=== PATIENT | female | born 1990 | race Caucasian/White ===

== ENCOUNTER 2017-11-15 08:41 | Day surgery (SDC) | payer MEDICAID, SELFPAY ==
[2017-11-15 08:50] VITALS: BP 112/66; PULSE 64; RESP 16; TEMP 36.4; O2SAT 99; BMI 37.1
--- NOTE | 2017-11-15 09:50 | LES_PTH ---
PATIENT: RISHABH AGUILAR [place] [facility] [place][id number] AGE/SX: 27/F ROOM: RE11/15/[address]: Dr. Marcelino Lacey MD : 1990 BED: DIS: 11/15/2017 SPEC #: [id number] RECD: 11/15/17 11:39 STATUS: LILIANA SELAM #: [id number] RAJAN: 11/15/17 09:[address]: Marcelino Lacey DEPT: SURGICAL PATHOLOGY RECD BY: Mark Collazo ENTERED: 11/15/17 12:28 SP TYPE: Lesion OTHR DR: Dr. Kirit Spears DO Tissues: A - Skin of lip, NOS B - Skin of lip, NOS Procedures: Surgery Specimen Level IV HEADER OPERATION: Excision, lesion, upper lip x2 PRE-OP DIAGNOSIS: Pigmented lesion, 6mm left upper lip, 3mm pigmented lesion left lower lit at star border TISSUE SUBMITTED: A. Lip lesion star border, B. Upper lip lesion MICROSCOPIC DIAGNOSIS A. Lip lesion, star border, biopsy: Intradermal nevus. B. Lesion of upper lip, biopsy: Intradermal nevus. AM:ryan 11/16/17 COMMENT Case has been reviewed in consultation with Dr. Cano who concurs with the above diagnosis. IDC:SJ MICROSCOPIC DESCRIPTION Slides are reviewed. GROSS DESCRIPTION A - Received in fixative is one container labeled with the patient's name and designated lip lesion star border. The specimen consists of a piece of han-white skin measuring 0.5 x 0.4 x 0.1 cm. The specimen is inked and submitted entirely in one cassette. It will be bisected at the time of embedding. B - Received in fixative is one container labeled with the patient's name and designated upper lip lesion. The specimen consists of a piece of han-white to light brown skin measuring 0.8 x 0.6 x 0.3 cm. The specimen is inked and submitted entirely in one cassette. It will be sectioned at the time of embedding. / VIJAY:ryan 11/15/17 TC:5 CPT: 08764 x2
--- NOTE | 2017-11-15 10:29 | PCM.HP.BLA ---
History and Physical Date of Admission: 11/15/17 Intake Vital Signs 09/08/17 Height 5 ft 9 in 09/08/17 Weight: 261 lb 2 oz 09/08/17 Body Mass Index (BMI) 38.5 09/08/17 Blood Pressure 119/82 09/08/17 Blood Pressure Location Lt brachial 09/08/17 Blood Pressure Position Sitting 09/08/17 Respiratory Rate 16 09/08/17 Pulse Rate 78 09/08/17 Pulse Source Monitor 09/08/17 Temperature 98.5 F 09/08/17 Temperature Source Temporal Artery 09/08/17 Pulse Ox 98 09/08/17 Oxygen Delivery Method room air HISTORY OF PRESENT ILLNESS 27 year old woman presents for evaluation for TBSE. She has concerns about pigmented lesions on her left upper lip and lower on the left upper lip at the star border. These lesions have increased in size over the last several months and has developed irregular borders. She denies any trauma. She denies any fever. She denies any bleeding. She presents at this time for further evaluation and treatment. PAST MEDICAL HISTORY Gallstones. peptic ulcer. PAST SURGICAL HISTORY cholecystectomy right knee surgery shoulder surgery MEDICATIONS None. ALLERGIES None. FAMILY HISTORY Aunt - Diabetes. CVA (cerebral vascular accident). Negative for skin cancer. SOCIAL HISTORY Smoking Status: Former smoker REVIEW OF SYSTEMS General - Denies fever, fatigue, and weight loss. Eyes - Denies cataracts and glaucoma. ENT - Denies nasal congestion and sore throat. Endocrine - Denies excessive thirst and urination. Skin - Denies skin cancer. Has enlarging pigmented lesions left upper lip and lower on the left upper lip at star border. Musculoskeletal - Denies joint pain, joint stiffness, weakness of muscles and joints, and arthritis. Has back pain. Neuro - Denies headaches. Cardiovascular - Denies chest pain, fatigue, and shortness of breath with exertion. Psych - Denies anxiety and depression. Respiratory - Denies chronic cough and shortness of breath. Gastrointestinal - Denies nausea, vomiting, diarrhea, and constipation. Hematologic - Denies abnormal bruising and bleeding. Genitourinary - Denies hematuria and urinary frequency. PHYSICAL EXAMINATION General - Alert and Oriented, HEENT - PERRL. EOMI. Throat is clear. On the left upper lip is a pigmented lesion that is raised in configuration. Has irregular borders. No ulceration. Lesion is nontender. Measures 6 mm. Lower on the left upper lip at the star border and close to the oral commissure is a pigmented lesion that is firm and raised in configuration. Has irregular borders. No ulceration. Lesion is nontender. Measures 3 mm. Neck - Supple and nontender. No cervical adenopathy. No suspicious lesions noted. Lungs - Clear to auscultation. Heart - Regular rate and rhythm. Abdomen - Soft and nondistended. No suspicious lesions noted. Extremities - FROM. No axillary adenopathy. Radial pulses are palpable. No suspicious lesions noted. Neuro - CN II-XII grossly intact. Psych - Normal mood and affect. ASSESSMENT 1. 6 mm pigmented lesion left upper lip. 2. 3 mm pigmented lesion lower on the left upper lip at star border. PLAN Recommend excision of these pigmented lesions on her left upper lip and lower on the left upper lip at star border. Surgery can be done under general anesthesia on an outpatient basis. Because it is pigmented, a deep shave excision would be the minimum that is acceptable. The goal is to remove all the pigmentation. Discussed with the patient that sometimes recurrent pigmentation can occur in which case further excision can be done. When excised these lesions will be sent to Pathology for analysis to rule out carcinoma. If carcinoma is present, then further excision will be necessary with skin graft or skin flap reconstruction. Because of the deep shave that is necessary, there is the risk that a contour irregularity may result. If it doesn't soften up and smooth out, then further excision will be necessary with skin grafting. Any revision that is done will occur at 9-12 months (minimum). Patient was informed of the risks and complications of the procedure including alternatives to surgery. These were discussed with the patient personally. Patient voices understanding and wishes to proceed. Some of the risks and complications were included in a form from the [employer].
[2017-11-15] MEDS: Silver Nitrate (BKC) 1 EACH (11:18)
[2017-11-15] MEDS: Mupirocin Ointment 22gm Tube 1 APPLIC (11:18)
[2017-11-15 11:30] VITALS: BP 112/66; BP 122/89; PULSE 97; RESP 16; TEMP 36.7; O2SAT 99
--- NOTE | 2017-11-15 11:37 | PCM.IMDPSTOP ---
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 6 mm pigmented lesion left upper lip. 2. 3 mm pigmented lesion lower on the left upper lip at star border. Post-Operative Diagnosis: Same. Surgery/Procedure Performed:: 1. Excision 6 mm pigmented lesion left upper lip. 2. Excision 3 mm pigmented lesion lower on the left upper lip at star border. Description of Surgical Findings:: 27 year old woman presents for evaluation for TBSE. She has concerns about pigmented lesions on her left upper lip and lower on the left upper lip at the star border. These lesions have increased in size over the last several months and has developed irregular borders. She denies any trauma. She denies any fever. She denies any bleeding. Today the patient underwent excision 6 mm pigmented lesion left upper lip and excision 3 mm pigmented lesion lower on the left upper lip at star border. Estimated Blood Loss: 2 ml. Specimen's removed: 1. Pigmented lesion left upper lip to Pathology. 2. Pigmented lesion lower on left upper lip at star border to Pathology. Drains: None. Type of Anesthesia:: General - Admit VTE Documentation VTE Present on Admission: No VTE Mechan Device Prophylaxis: SCD's VTE Pharm Prophylaxis ordered?: No
--- NOTE | 2017-11-15 11:42 | PCM.DC ---
You will use the following diet at home:: No restrictions Discharge Activity: - - keep head elevated. May shower in (days): 2 May resume sexual activity in: No Restrictions Ice area for (Minutes): 5 - as needed for facial swelling. Weight Bearing Status: Weight bearing as tolerated Lifting Restrictions: 20 lbs. Keep extremity elevated above heart level: - - elevate head. Call your doctor if your incision/area has: Continuous Slow Oozing, Sudden Increased Bleeding, Increased Pain/ Swelling, Increased Redness, Foul Smelling Discharge, Swelling at the incision site Call your doctor if you observe: Fever of 101 or Higher, Coldness, Increased Pain, Shortness of breath, Chest pain, Calf discomfort, Uncontrolled pain Suture Line Care: - - antibiotic ointment to wounds daily. Cleanse incision/area with: - - may get wounds wet in the shower in two days. Allergies/Adverse Reactions: Allergies No Known Allergies Allergy (Verified 11/08/17 10:15) Medications to take at Discharge Clindamycin HCl [Cleocin] 300 mg PO TID #12 cap 11/15/17 Oxycodone HCl/Acetaminophen [Percocet 5/325] 1 tab PO 4X/DAY PRN PRN 2 Days #6 tab 11/15/17 The following prescriptions were given: Oxycodone HCl/Acetaminophen [Percocet 5/325] 1 tab PO 4X/DAY PRN PRN 2 Days #6 tab PRN Reason: Pain Clindamycin HCl [Cleocin] 300 mg PO TID #12 cap Primary Care Physician: Kirit Spears [Primary Care Provider] - Test Results: Test results from this visit will be discussed in further detail at your follow-up appointment, if applicable. Please Follow Up With: one week. call [phone] for appt. Proposed Discharge Date: 11/15/17
[2017-11-15 11:45] VITALS: BP 112/66; BP 114/64; PULSE 65; RESP 16; O2SAT 100
[2017-11-15 12:00] VITALS: BP 111/69; BP 112/66; PULSE 61; RESP 16; O2SAT 98
[2017-11-15 12:05] VITALS: BP 102/59; BP 112/66; PULSE 73; RESP 16; TEMP 36.4; O2SAT 96
[2017-11-15 12:31] VITALS: BP 110/62; BP 112/66; PULSE 65; RESP 16; TEMP 36.2; O2SAT 99
--- NOTE | 2017-11-15 21:40 | PCM.OPRPT ---
Report of Operation Date of Procedure: 11/15/17 Pre-Operative Diagnosis: 1. 6 mm pigmented lesion left upper lip. 2. 3 mm pigmented lesion lower on the left upper lip at star border. Post-Operative Diagnosis: Same. Surgery/Procedure Performed:: 1. Excision 6 mm pigmented lesion left upper lip. 2. Excision 3 mm pigmented lesion lower on the left upper lip at star border. Description of Surgical Findings:: 27 year old woman presents for evaluation for TBSE. She has concerns about pigmented lesions on her left upper lip and lower on the left upper lip at the star border. These lesions have increased in size over the last several months and has developed irregular borders. She denies any trauma. She denies any fever. She denies any bleeding. Patient was informed of the risks and complications of the procedure including alternatives to surgery. These were discussed with the patient personally. Patient voices understanding and wishes to proceed. Some of the risks and complications were included in a form from the [employer]. 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 Pigmented lesion left upper lip to Pathology. 2. Pigmented lesion lower on the left upper lip at star border to Pathology. Drains: None. Estimated Blood Loss (mL): 2 ml. Description of Procedure: Patient was taken to OR in supine position and was placed under general anesthesia. The lip area was prepped and draped in the usual fashion. SCD's were placed for DVT prophylaxis. Perioperative antibiotics were given intravenously. Using xylocaine with epinephrine, the lip area was infiltrated. After waiting 5 minutes for the anesthetic to take effect, I proceeded with deep excision of these pigmented lesions to get all of the pigmentation. These lesions (left upper lip and lower on the left upper lip at star border) were sent to Pathology for analysis to rule out carcinoma. Hemostasis was obtained with gentle pressure and silver nitrate chemical cauterization. Antibiotic ointment was applied to the wounds. Will see how the wounds heal with the possibility of an indentation scar contour deformity since I had to perform a deep excision to get all of the pigmentation removed. If an indentation scar contour deformity develops, then further excision can be done with skin flap reconstruction. She tolerated the procedure well and was sent to PACU in satisfactory condition. She will be sent home on antibiotics and pain medication. She will keep her head elevated in the initial postop period. She will followup in the office in a week for a wound check as well as to discuss the pathology report. Grafts/Implants Used: None. - Complications None. - Admit VTE Documentation VTE Present on Admission: No VTE Mechan Device Prophylaxis: SCD's VTE Pharm Prophylaxis ordered?: No Code Visit Surgery Charges CPT - 11487 ICD-10 - D49.2 11085 D49.2
== END 2017-11-15 12:33 | disposition home or self-care (01) ==
LOC: SDC 08:47 → AC 08:48
PROVIDERS: Family Provider Family Medicine; PCP Family Medicine; Visit Provider Surgery
PROC: (CPT 11441; principal; 2017-09-27 10:15)
DX: D22.0 Melanocytic nevi of lip (principal); K13.0 Diseases of lips; Z87.891 Personal history of nicotine dependence
CPT/HCPCS: 11441; 88305; J7120

== ENCOUNTER → 2019-05-11 11:36 | Outpatient (CLI) | payer MEDICAID, SELFPAY ==
[2017-11-23 14:17] VITALS: BMI 37.5
--- NOTE | 2019-05-11 11:45 | RAD_ITS ---
STUDY: X-RAY - LUMBAR SPINE REASON FOR EXAM: Female, 29 years old. Injury 3 days ago, low to mid back pain TECHNIQUE: 5 view(s) of the lumbar spine were obtained. COMPARISON: None FINDINGS: Normal lumbar lordosis. There is no substantial scoliosis. There is a normal alignment of the vertebrae. Normal vertebral bodies and endplates. Normal disc space heights. The soft tissue structures are unremarkable. RAD/L/S Spine Min 4 Views IMPRESSION: Normal x-ray examination of the lumbar spine. Electronically Signed: Skyler Garcia MD at 15:26 EST Tel , Service support ,
== END ==
PROVIDERS: PCP Family Medicine; Referring Provider Chiropractor; Visit Provider Chiropractor
DX: S33.5XXA Sprain of ligaments of lumbar spine, initial encounter (principal)
CPT/HCPCS: 72110

== ENCOUNTER 2024-10-27 23:23 | Emergency (ER) | payer SELFPAY ==
[2024-10-27] VITALS (7 sets, daily range): BP systolic 97–107; BP diastolic 61–72; PULSE 41–62; RESP 14–26; TEMP 36.6; O2SAT 97–100; BMI 27.0
[2024-10-27] MEDS: 0.9% Normal Saline (1000mL) 1,000 ML 999 ML IV (23:30)
[2024-10-27] MEDS: fentaNYL 100 MCG/2 ML Ampul 50 MCG IV (23:31)
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
[2024-10-28] VITALS: BP 98/64; PULSE 43; RESP 11; O2SAT 100
[2024-10-28 00:03] VITALS: BP 100/65; PULSE 45; RESP 14; O2SAT 100
[2024-10-28 00:06] VITALS: BP 100/61; PULSE 46; RESP 13; O2SAT 100
[2024-10-28] MEDS: Mannitol 50gm/250ml 250 ML IV (00:11)
[2024-10-28] MEDS: fentaNYL 100 MCG/2 ML Ampul IV (00:12)
[2024-10-28 00:24] VITALS: BP 100/61; PULSE 46; RESP 13; TEMP 36.2; O2SAT 100
--- NOTE | 2024-10-28 00:39 | ED.RN ---
Report called to Gogo RHODES at [facility], questions/concerns answered
[2024-10-28 00:45] VITALS: O2SAT 94
[2024-10-28] MEDS: 0.9% Normal Saline (1000mL) 1,000 ML 999 ML IV (01:18)
== END 2024-10-28 01:29 | disposition short-term general hospital (02) ==
PROVIDERS: Emergency Provider Emergency Medicine; PCP Family Medicine; Visit Provider Emergency Medicine
DX: S06.1X9A Traumatic cerebral edema with loss of consciousness of unspecified duration, initial encounter (principal); S05.8X2A Other injuries of left eye and orbit, initial encounter; V86.65XA Passenger of 3- or 4- wheeled all-terrain vehicle (ATV) injured in nontraffic accident, initial encounter; Y93.55 Activity, bike riding; Z87.891 Personal history of nicotine dependence
CPT/HCPCS: 31500; 51702; 71045; 72170; 93005; 99252; 99285; A4216; G0463; J2405